=== PATIENT | female | born 1975 | race Caucasian/White ===

== ENCOUNTER 2017-01-03 01:13 | Emergency (ER) | payer OTHER ==
[2017-01-03 01:59] VITALS: TEMP 98.4; O2SAT 100
--- NOTE | 2017-01-03 02:54 | ED PDOC ---
Arrival/HPI <Kel Blankenship - Last Filed: 01/03/17 03:26> - General Historian: Patient - History of Present Illness Time/Duration: 4-6 hours Symptom Onset: Sudden Symptom Course: Unchanged Quality: Stabbing <MarkellWanda miner - Last Filed: 01/03/17 06:51> - General Time Seen by Provider: 01/03/17 02:32 - History of Present Illness Narrative History of Present Illness (Text): 01/03/17 02:50 41 y/o F with PMHx of RA presents for sudden left sided chest pain that began about 7 pm on 01/02/17. Patient states that she was sitting at home when she developed sharp sudden pain. Pain is located in lower par tof chest and LUQ. pain does not radiate. Pain feels sharp. Pt used 2 Aleve for pain without relief. Patient does state that for about 2 weeks she had minimal right calf swelling. Patient denies having any recent travels, hx of blood clots. Patient denies having any F/C, SOB, N/v/D/C, abd pain. (Wanda Mtz) Past Medical History - Provider Review Nursing Documentation Reviewed: Yes - Travel History Have you recently traveled outside [place] w/in the past 3 mons?: No <Wanda Mtz - Last Filed: 01/03/17 06:51> Family/Social History - Physician Review Nursing Documentation Reviewed: Yes Family/Social History: Unknown Family HX. denies: CAD/DC <Wanda Mtz - Last Filed: 01/03/17 06:51> Allergies/Home Meds <Kel Blankenship - Last Filed: 01/03/17 03:26> <Wanda Mtz - Last Filed: 01/03/17 06:51> Allergies/Adverse Reactions: Allergies acetaminophen [From NyQuil] Allergy (Verified 01/03/17 02:48) ITCHING dextromethorphan [From NyQuil] Allergy (Verified 01/03/17 02:48) ITCHING doxylamine [From NyQuil] Allergy (Verified 01/03/17 02:48) ITCHING pseudoephedrine [From NyQuil] Allergy (Verified 01/03/17 02:48) ITCHING Review of Systems - Review of Systems Constitutional: Normal. absent: Fatigue, Fevers Eyes: Normal. absent: Vision Changes, Photophobia ENT: Normal. absent: Tinnitus, Voice Changes, Sore Throat, Rhinorrhea Respiratory: Normal. absent: SOB, Cough, Sputum, Wheezing Cardiovascular: Chest Pain, Edema. absent: Calf Pain Gastrointestinal: Normal. absent: Abdominal Pain, Constipation, Diarrhea, Nausea, Vomiting Genitourinary Female: Normal. absent: Dysuria, Frequency, Hematuria Musculoskeletal: Normal. absent: Back Pain, Neck Pain Skin: Normal. absent: Rash, Pruritis, Skin Lesions, Laceration Neurological: Normal. absent: Headache, Dizziness Hemo/Lymphatic: Normal. absent: Adenopathy, Easy Bleeding Psychiatric: Normal. absent: Anxiety, Depression <Karim,Wanda - Last Filed: 01/03/17 06:51> Physical Exam Vital Signs Reviewed: Yes Temperature: Afebrile Blood Pressure: Hypertensive Pulse: Regular Respiratory Rate: Normal Appearance: Positive for: Uncomfortable Pain Distress: Moderate Mental Status: Positive for: Alert and Oriented X 3 - Systems Exam Head: Present: Atraumatic, Normocephalic Pupils: Present: PERRL Extroacular Muscles: Present: EOMI Mouth: Present: Moist Mucous Membranes Neck: Present: Normal Range of Motion Respiratory/Chest: Present: Clear to Auscultation, Good Air Exchange, Rales. No : Respiratory Distress, Accessory Muscle Use, Wheezes, Rhonchi Cardiovascular: Present: Regular Rate and Rhythm, Normal S1, S2, Other ( tenderness to palpation on left side). No: Murmurs Abdomen: Present: Tenderness (LUQ), Normal Bowel Sounds. No: Distention, Peritoneal Signs, Guarding Lower Extremity: Present: Normal Inspection, CALF TENDERNESS (right LE), NORMAL PULSES. No: Edema Neurological: Present: GCS=15, CN II-XII Intact, Speech Normal Skin: Present: Warm, Dry, Normal Color. No: Rashes Psychiatric: Present: Alert, Oriented x 3, Normal Insight, Normal Concentration <Karim,Wanda - Last Filed: 01/03/17 06:51> Vital Signs Temp Pulse Resp BP Pulse Ox 01/03/17 06:46 72 18 147/83 100 01/03/17 05:18 73 18 146/84 100 01/03/17 03:18 70 20 145/85 100 01/03/17 01:58 98.4 F 71 20 151/106 H 100 Medical Decision Making <Kel Blankenship - Last Filed: 01/03/17 03:26> - EKG Interpretation Interpreted by ED Physician: Yes Type: 12 lead EKG <Wanda Mtz - Last Filed: 01/03/17 06:51> ED Course and Treatment: Impression: Pt seen and evaluated with medical receptionist biller. Pt, whose past medical history includes rheumatoid arthritis, presented for sharp left-sided chest pain/LUQ pain since 19:00. Notes some right calf swelling over past 2 weeks. Aware and agree with HPI, clinical findings, plan, and management. Plan: -- EKG -- Chest X-ray -- US Duplex Lower Extremities -- Labs, cardiac enzymes, D-dimer -- UA -- Toradol -- Reassess and disposition (KrzysztofKel) 01/03/17 02:58 41 y/o F presents for left sided chest pain and LUQ pain. KAMILA score of 0 which means 5% chance of adverse cardiac event in next 14 days. Well's criteria is 0 Will check CBC, CMP, lipase, cardiac enzymes, EKG, CXR, LE duplex US, d dimer Patient will be given toradol 01/03/17 04:14 D dimer is noted to be elevated 01/03/17 06:32 CTA is negative for PE. Patient is asked to follow up with PMD upon discharge. She is given a copy of the CT scan. (Wanda Mtz) - Lab Interpretations Narrative Lab Interpretation (Text): 01/03/17 04:33 D dimer is 3.56 (Wanda Mtz) Lab Results: 01/03/17 03:00 01/03/17 03:00 Lab Results 01/03/17 03:00: Lipase 83 01/03/17 03:00: D-Dimer, Quantitative 3.56 H 01/03/17 03:00: Sodium 139, Potassium 4.0, Chloride 105, Carbon Dioxide 26, Anion Gap 12, BUN 13, Creatinine 0.7, Est GFR ( Amer) > 60, Est GFR (Non- Af Amer) > 60, Random Glucose 97, Calcium 8.8, Total Bilirubin 0.8, AST 60 H, ALT 78 H, Alkaline Phosphatase 73, Lactate Dehydrogenase 493, Total Creatine Kinase 28 L, Troponin I < 0.01, Total Protein 7.4, Albumin 3.3, Globulin 4.1, Albumin/Globulin Ratio 0.8 L 01/03/17 03:00: Urine Color Yellow, Urine Appearance Sl cloudy, Urine pH 6.5, Ur Specific [place] <= 1.005, Urine Protein Trace H, Urine Glucose (UA) Negative , Urine Ketones Negative, Urine Blood Moderate H, Urine Nitrate Negative, Urine Bilirubin Negative, Urine Urobilinogen 0.2, Ur Leukocyte Esterase Large H, Urine RBC 1 - 3, Urine WBC 5 - 10, Ur Epithelial Cells 1 - 3, Urine Bacteria Few , Urine HCG, Qual Negative 01/03/17 03:00: WBC 3.0 L, RBC 3.84, Hgb 11.5 L, Hct 34.1 L, MCV 88.8, MCH 29.9 , MCHC 33.7, RDW 13.9, Plt Count 194, MPV 10.3 - RAD Interpretation Narrative RAD Interpretations (Text): 01/03/17 04:14 negative CXR 01/03/17 06:30 CTA chest negative for PE (Karim,Wanda) Radiology Orders: 01/03/17 02:48 DUPLEX LOWER EXTRM VEIN BILAT [US] Stat 01/03/17 02:49 CHEST PORTABLE [RAD] Stat 01/03/17 04:13 ANGIO CHEST PE PROTOCOL [CT] Stat - EKG Interpretation EKG Interpretation (Text): 01/03/17 03:34 NSR HR of 62, normal axis, normal interval No ST changes (Karim,Wanda) - Medication Orders Current Medication Orders: Discontinued Medications Iohexol (Omnipaque 300 100 Ml) Confirm Administered Dose 100 ml IJ .STK-MED ONE Stop: 01/03/17 04:50 Ketorolac Tromethamine (Toradol) 15 mg IM STAT STA Stop: 01/03/17 02:50 Last Admin: 01/03/17 03:30 Dose: 15 mg Wells Criteria for PE - Wells Criteria for Pulmonary Embolism Clinical Signs and Symptoms of DVT: No P.E is #1 Diagnosis, or Equally Likely: No Heart Rate >100: No Immobilization at least 3 days;Surgery previous 4 weeks: No Previous, objectively diagnosed PE or DVT: No Hemoptysis: No Malignancy w/treatment within 6 months, or palliative: No Total Score: 0 <KarimWanda - Last Filed: 01/03/17 06:51> KAMILA Risk Score for UA/NSTEMI - KAMILA Risk Score Age > 64: NO 3 or more CAD Risk Factors: NO Known CAD (Stenosis greater than 50%): NO Aspirin use in past 7 days: NO Severe Angina: NO EKG ST changes greater than 0.5mm: NO Positive Cardiac Marker: NO KAMILA Score: 0 % risk at 14 days of: all cause mortality, new or recurrent DC, or severe recurrent ischemia requiring urgen revascularization: 5% <Wanda Mtz - Last Filed: 01/03/17 06:51> - PA / PROJECTOR BOOTH OPERATOR / Resident Statement / has reviewed & agrees with the documentation as recorded. / has examined the patient and agrees with the treatment plan. <Kel Blankenship - Last Filed: 01/03/17 03:26> Disposition/Present on Arrival <Kel Blankenship - Last Filed: 01/03/17 03:26> - Present on Arrival Any Indicators Present on Arrival: No - Disposition Have Diagnosis and Disposition been Completed?: No Disposition Time: 06:31 Patient Plan: Discharge <Wanda Mtz - Last Filed: 01/03/17 06:51> - Disposition Diagnosis: Costochondritis Disposition: HOME/ ROUTINE Patient Problems: Current Active Problems Problem Status Onset Costochondritis Acute Condition: STABLE Additional Instructions: Isabel Montes, thank you for letting us take care of you today. Your provider was Dr. Wanda Mtz. You were treated for chest pain. The emergency medical care you received today was directed at your acute symptoms. If you were prescribed any medication, please fill it and take as directed. It may take several days for your symptoms to resolve. Return to the Emergency Department if your symptoms worsen, do not improve, or if you have any other problems. Please contact your doctor or call one of the physicians/clinics you have been referred to that are listed on the Patient Visit Information form that is included in your discharge packet. Bring any paperwork you were given at discharge with you along with any medications you are taking to your follow up visit. Our treatment cannot replace ongoing medical care by a primary care provider (PCP) outside of the emergency department. Thank you for allowing the [facility] team to be part of your care today. If you had an X-Ray or CT scan: A Radiologist will review the ED reading if any change in treatment is needed we will contact you. If you had a blood, urine, or wound culture: It will take several days for the results, if any change in treatment is needed we will contact you. If you had an STI test: It will take 48 hours for the results. Please call after 1 week if you have not heard back. Patient is told to follow up with PMD upon discharge Prescriptions: Ibuprofen [Motrin] 600 mg PO TID #10 tab
[2017-01-03 03:42] LABS: HEMOGLOBIN 11.5 g/dL (12.0-16.0); MEAN CELL VOLUME 88.8 fl (80.0-105.0); MEAN CORPUSCULAR HEMOGLOBIN 29.9 pg (25.0-35.0); MEAN CORPUSCULAR HGB CONC 33.7 g/dl (31.0-37.0); MEAN PLATELET VOLUME 10.3 fl (7.0-11.0); RBC 3.84 10^6/uL (3.5-6.1); RED CELL DISTRIBUTION WIDTH 13.9 % (11.5-14.5)
[2017-01-03 03:44] LABS: PH,URINE 6.5 (4.7-8.0); URINE BILIRUBIN NEGATIVE (NEGATIVE); URINE BLOOD MODERATE (NEGATIVE); URINE GLUCOSE (UA) NEGATIVE (NEGATIVE); URINE LEUKOCYTE ESTERASE LARGE Leu/uL (NEGATIVE); URINE NITRATE NEGATIVE (NEGATIVE); URINE PROTEIN TRACE mg/dL (<30 mg/dL); URINE UROBILINOGEN 0.2 E.U./dL (<1 E.U./dL)
[2017-01-03 03:46] LABS: ALB/GLOB RATIO 0.8 (1.1-1.8); ALBUMIN 3.3 g/dL (3.0-4.8); ALT/SGPT 78 U/L (7-56); AST/SGOT 60 U/L (15-39); BLOOD UREA NITROGEN 13 mg/dL (7-21); CALCIUM 8.8 mg/dL (8.4-10.5); GFR AFRICAN-AMERICAN > 60; GFR NON-AFRICAN AMERICAN > 60
[2017-01-03 03:50] LABS: HCG,QUALITATIVE URINE NEGATIVE (NEGATIVE); URINE APPEARANCE SL CLOUDY (CLEAR); URINE COLOR YELLOW (YELLOW)
[2017-01-03 04:03] LABS: TROPONIN I < 0.01 ng/mL
[2017-01-03 04:04] LABS: URINE BACTERIA FEW (NEG)
[2017-01-03] MEDS ORDERED: Iohexol 300 100 ML IJ ONE (04:49)
[2017-01-03 06:48] VITALS: BP 147/83; PULSE 72; RESP 18
--- NOTE | 2017-01-03 11:14 | CT ---
PROCEDURE: CT Chest with contrast (Pulmonary Angiogram) HISTORY: chest pain, elevated D dimer COMPARISON: None available. TECHNIQUE: Axial computed tomography images were obtained of the chest in the pulmonary arterial phase of enhancement. Coronal and sagittal reformatted images were created and reviewed. Maximum intensity projection (MIP) reconstructed images in the following planes: Coronal projection only Intravenous contrast dose: 100 cc Omnipaque 300. Mean Hounsfield unit values in the main pulmonary artery: 323.17 Radiation dose: Total exam DLP = 334.05 mGy-cm. This CT exam was performed using one or more of the following dose reduction techniques: Automated exposure control, adjustment of the mA and/or kV according to patient size, and/or use of iterative reconstruction technique. FINDINGS: PULMONARY ARTERIES: Unremarkable. No pulmonary embolism. AORTA: No acute findings. No thoracic aortic aneurysm. LUNGS: Unremarkable. No nodule, mass or pulmonary consolidation. PLEURAL SPACES: Unremarkable. No effusion or pneuomothorax. HEART: Unremarkable. No cardiomegaly. No significant pericardial effusion. LYMPH NODES: No lymphadenopathy. BONES, CHEST WALL: Unremarkable. No fracture or destructive lesion OTHER FINDINGS: Unremarkable. IMPRESSION: Unremarkable CT pulmonary angiogram. No pulmonary embolus. Concordant results (preliminary interpretation) provided by [employer]. Procedure Completed: 05:12. Preliminary ([facility]) Report: Dictated and Authenticated: 06:21. Final Interpretation: 11:12. January 03, 2017.
--- NOTE | 2017-01-03 12:02 | RAD ---
HISTORY: Chest pain. Technique: Portable study performed @ 04:02. COMPARISON: January 03, 2017. CT pulmonary angiogram. FINDINGS: LUNGS: No active pulmonary disease. PLEURA: No significant pleural effusion identified, no pneumothorax apparent. CARDIOVASCULAR: Normal. OSSEOUS STRUCTURES: No significant abnormalities. VISUALIZED UPPER ABDOMEN: Normal. OTHER FINDINGS: None. IMPRESSION: No active disease.
--- NOTE | 2017-01-03 12:50 | US ---
HISTORY: Leg pain and swelling. Evaluate for DVT PHYSICIAN(S): Alejo Patten MD. TECHNIQUE: Duplex sonography and color-flow Doppler with graded compression were used to evaluate the deep venous systems of both lower extremities. FINDINGS: The visualized deep venous systems of both lower extremities are sonographically normal and compressible. Normal wave forms and augmentation are seen. There is no sonographic evidence for deep venous thrombosis in the visualized segments of both lower extremities. IMPRESSION: No sonographic evidence for deep venous thrombosis in the visualized segments of both lower extremities.
--- NOTE | 2017-01-04 13:22 | CARD ---
APPROVED REPORT EKG Measurement Heart [id number] <Conclusion> Normal sinus rhythm Normal ECG
== END 2017-01-03 06:49 | disposition home or self-care (01) ==
LOC: ED 01:13 → MERGE 01:13 → ED 06:49
DX: M94.0 Chondrocostal junction syndrome [Tietze] (principal)
CPT/HCPCS: 71010; 71275; 80053; 81001; 82550; 83615; 83690; 84484; 84703; 85027; 85378; 87086; 93005; 93970; 96372; 99285; J1885; Q9967